=== PATIENT | male | born 1985 | race Two or more races ===

== ENCOUNTER 2020-11-30 13:28 | Emergency (ER) | payer SELFPAY ==
[~2020-11-30] VITALS: Ht 175.3 cm; Wt 81.1 kg
--- NOTE | 2020-11-30 13:55 | NUR ---
TO ROOM FROM LOBBY. NAD.
[2020-11-30] MEDS ORDERED: ONDANSETRON 2MG/ML, 2ML ONE (14:14)
[2020-11-30] MEDS ORDERED: MORPHINE SULFATE 4 MG/ML, 1ML ONE ×2 (14:15→14:51)
[2020-11-30] MEDS: MORPHINE SULFATE 4 MG/ML, 1ML IVPush PRN ×2 (14:17→14:54)
[2020-11-30] MEDS ORDERED: SODIUM CHLORIDE FLUSH 10ML SYR IVF ONE (14:30)
[2020-11-30] MEDS ORDERED: ONDANSETRON 2MG/ML, 2ML IVPush ONE (14:30)
--- NOTE | 2020-11-30 14:30 | NUR ---
PT TO ROOM 43 W/ C/O R GROING PAIN. PT STATES HE STARTED HAVING R FLANK PAIN THIS AM AT 0900 AND THE PAIN STARTED TO TRAVEL TO FRONT OF GROIN. PT DENIES HEMATURIA. PT UNABLE TO SIT ON GURNEY. SITING IN CHAIR. PIV INITIATED. MEDICATED PER AUG.
[2020-11-30 14:47] LABS: ALANINE AMINOTRANSFERASE 22 U/L (12-78); ALBUMIN 3.9 g/dL (3.4-5.0); ANION GAP 12 mmol/L (5-15); BASOPHILS % (AUTO) 0 % (0-1); CALCIUM 8.8 mg/dL (8.5-10.1); CHLORIDE 109 mmol/L (98-107); CREATININE 1.15 mg/dL (0.7-1.3); EOSINOPHILS % (AUTO) 0 % (1-7); LYMPHOCYTES % (AUTO) 21 % (22-44); MEAN CORPUSCULAR HEMOGLOBIN 27.6 pg (27.5-34.5); MEAN CORPUSCULAR HGB CONC 33.3 g/dL (33.2-36.2); MEAN PLATELET VOLUME 8.5 fL (7.4-10.4); MONOCYTES % (AUTO) 5 % (2-9); NEUTROPHILS % (AUTO) 73 % (42-75); PLATELET COUNT 295 x10^3/uL (130-400); RED BLOOD COUNT 5.43 x10^6/uL (4.38-5.82); RED CELL DISTRIBUTION WIDTH 13.7 % (9.4-14.8)
[2020-11-30] MEDS ORDERED: KETOROLAC 30 MG/1 ML ONE (14:47)
[2020-11-30 14:50] LABS: ALKALINE PHOSPHATASE 106 U/L (45-117); BILIRUBIN,TOTAL 0.4 mg/dL (0.2-1.0); TOTAL PROTEIN 8.3 g/dL (6.4-8.2)
[2020-11-30] MEDS ORDERED: KETOROLAC 30 MG/1 ML IVPush ONE (15:00)
--- NOTE | 2020-11-30 15:15 | NUR ---
PT STATES PAIN IMPROVED FROM 03/24 TO 06/24. PT AWARE OF NEED FOR UA SAMPLE. PT ATTEMPTING SAMPLE AT THIS TIME.
[2020-11-30 15:36] LABS: MICROSCOPIC AUTO
--- NOTE | 2020-11-30 15:41 | NUR ---
PT CHART REVIEWED AND PLACED FOR RECHECK.
[2020-11-30 15:59] VITALS: BP 111/70
[2020-11-30] MEDS ORDERED: ONDANSETRON ODT 8 MG ONE (16:29)
[2020-11-30] MEDS ORDERED: ONDANSETRON ODT 8 MG PO ONE (16:30)
== END 2020-11-30 17:14 | disposition home or self-care (01) ==
LOC: EDSEX 13:28 → ED 16:00
DX: N23 Unspecified renal colic (principal)
CPT/HCPCS: 36415; 74176; 80053; 81001; 85025; 96374; 96375; 96376; 99285; J1885; J2270; J2405; Q0162

== ENCOUNTER 2020-12-02 11:19 | Emergency (ER) | payer SELFPAY ==
[2020-12-02 11:31] VITALS: BP 127/76
== END 2020-12-02 12:21 | disposition home or self-care (01) ==
LOC: ED 12:15
DX: Z00.00 Encounter for general adult medical examination without abnormal findings (principal)
CPT/HCPCS: 99281